=== PATIENT | male | born 1935 | race Caucasian/White ===

== ENCOUNTER 2021-02-21 18:38 | Outpatient (CLI) | payer MEDICARE, OTHER | END 2021-02-21 18:39 | disposition critical access hospital (66) | LOC: EMS 18:38 | DX: R41.0 Disorientation, unspecified (principal) | CPT/HCPCS: A0425; A0429 ==

== ENCOUNTER 2021-02-21 18:58 | Emergency (ER) | payer MEDICARE, OTHER ==
--- NOTE | 2021-02-21 19:25 | ED Physician Documentation ---
PD HPI ALTERED MENTAL STATUS - Stated complaint Stated Complaint: CONFUSED - History obtained from History obtained from: Patient, EMS - Additional information Additional information: 85-year-old gentleman presents by ambulance having gone over the neighbors house looking for his . He states that he sees her every now and then and now admits that it was not true and he was confused. That said he does seem mildly confused and notes that his children have recently taken his cars away from him. He does still live alone. Review of Systems Ten Systems: 10 systems reviewed and negative Constitutional: reports: Reviewed and negative Eyes: reports: Reviewed and negative Ears: reports: Reviewed and negative Nose: reports: Reviewed and negative PD PAST MEDICAL HISTORY - Past Medical History Cardiovascular: Hypertension Respiratory: COPD Musculoskeletal: Osteoarthritis - Past Surgical History Past Surgical History: Yes General: Cholecystectomy Cardiovascular: Valve replacement - Present Medications Home Medications: Ambulatory Orders Medication Instructions Recorded Confirmed Ascorbic Acid [Vitamin C] 1,000 mg PO DAILY 05/20/13 02/11/15 Aspirin [Aspir 81] 81 mg PO DAILY 05/20/13 02/11/15 Esomeprazole Magnesium [Nexium] 20 mg PO DAILY 05/20/13 02/11/15 Fluticasone [Flonase] 1 sprays [place] DAILY 05/20/13 02/11/15 Multivitamin [Multivitamins] 1 each PO DAILY 05/20/13 02/11/15 Simvastatin [Zocor] 20 mg PO QPM 05/20/13 02/11/15 Terazosin [Hytrin] 2 mg PO QPM 05/20/13 02/11/15 Tiotropium [Spiriva] 1 puffs INH DAILY 05/20/13 02/11/15 amLODIPine [Norvasc] 10 mg PO DAILY 05/20/13 02/11/15 lisinopriL [Lisinopril] 5 mg PO DAILY 05/20/13 02/11/15 - Allergies Allergies/Adverse Reactions: Allergies Allergy/AdvReac Type Severity Reaction Status Date / Time No Known Drug Allergies Allergy Verified 02/21/21 19:27 - Social History Does the pt smoke?: No Smoking Status: Never smoker Does the pt drink ETOH?: No Does the pt have substance abuse?: No - Immunizations Immunizations are current?: Yes - POLST Patient has POLST: Yes POLST Status: Full Code PD ED PE NORMAL - Vitals Vital signs reviewed: Yes - General General: Other (Alert and oriented to person and place but not time) - HEENT HEENT: PERRL, EOMI - Neck Neck: Supple, no meningeal sign, No bony TTP - Abdomen Abdomen: Soft, Non tender - Back Back: No CVA TTP, No spinal TTP - Derm Derm: Normal color, Warm and dry - Extremities Extremities: No edema, No calf tenderness / cord - Psych Psych: Normal mood, Normal affect Results - Vitals Vitals: Vital Signs - 24 hr 02/21/21 19:23 Temperature 36.8 C Heart Rate 58 L Respiratory 18 Rate Blood Pressure 231/72 H O2 Saturation 97 Oxygen O2 Source Room air - Labs Labs: Laboratory Tests 02/21/21 02/21/21 02/21/21 19:20 19:20 19:20 WBC 6.9 RBC 3.93 L Hgb 12.6 L Hct 38.7 L MCV 98.5 H MCH 32.1 H MCHC 32.6 RDW 13.2 Plt Count 175 MPV 9.6 Neut # (Auto) 3.9 Lymph # (Auto) 2.1 [place] # (Auto) 0.7 Eos # (Auto) 0.2 Baso # (Auto) 0.0 Absolute Nucleated RBC 0.00 Nucleated RBC % 0.0 PT 13.4 H INR 1.2 Sodium 141 Potassium 4.2 Chloride 104 Carbon Dioxide 28 Anion Gap 9.0 BUN 26 H Creatinine 1.2 Estimated GFR (MDRD) 58 L Glucose 101 H Calcium 8.6 Magnesium 2.0 Total Bilirubin 0.5 AST 18 ALT 11 Alkaline Phosphatase 58 Total Protein 6.5 L Albumin 3.5 Globulin 3.0 Albumin/Globulin Ratio 1.2 Ethyl Alcohol < 5.0 PD MEDICAL DECISION MAKING - ED course ED course: 85-year-old gentleman presents with no specific complaint but having gone over the neighbors house looking for his . He is mildly confused and I discussed this with his son, Otoniel, by phone. He is available [phone]. They understand that dad is demented and is likely approaching the point where he is no longer able to live alone. He will pick him up after work-up. Departure - Departure Disposition: 01 Home, Self Care Clinical Impression: Dementia Qualifiers: Dementia type: unspecified type Dementia behavioral disturbance: without behavioral disturbance Qualified Code(s): F03.90 - Unspecified dementia without behavioral disturbance Condition: Good Record reviewed to determine appropriate education?: Yes Instructions: ED Dementia Caregiver Support Comments: He should not drive and he is approaching the point where he is no longer safe to live alone. Please consider alternative arrangements. Follow-up with your primary care physician.
[2021-02-21 19:26] VITALS: BP 231/72
[2021-02-21 19:29] LABS: BASOPHILS % (AUTO) 0.6 %; EOSINOPHILS # (AUTO) 0.2 10^3/uL (0.0-0.7); EOSINOPHILS % (AUTO) 2.5 %; HCT - HEMATOCRIT 38.7 % (42.0-52.0); HGB - HEMOGLOBIN 12.6 g/dL (14.0-18.0); LYMPHOCYTES # (AUTO) 2.1 10^3/uL (1.5-3.5); LYMPHOCYTES % (AUTO) 30.1 %; MEAN CORPUSCULAR HEMOGLOBIN 32.1 pg (27.0-31.0); MEAN CORPUSCULAR HGB CONC 32.6 g/dL (32.0-36.0); MEAN CORPUSCULAR VOLUME 98.5 fL (80.0-94.0); MEAN PLATELET VOLUME 9.6 fL (7.4-11.4); MONOCYTES # (AUTO) 0.7 10^3/uL (0.0-1.0); MONOCYTES % (AUTO) 10.4 %; NEUTROPHILS # (AUTO) 3.9 10^3/uL (1.5-6.6); NEUTROPHILS % (AUTO) 56.1 %; PLT - PLATELET COUNT 175 10^3/uL (130-450); RED BLOOD COUNT 3.93 10^6/uL (4.70-6.10); RED CELL DISTRIBUTION WIDTH 13.2 % (12.0-15.0); WHITE BLOOD COUNT 6.9 x10^3/uL (4.8-10.8)
[2021-02-21 19:34] LABS: INR 1.2 (0.8-1.2); PT - PROTHROMBIN TIME 13.4 secs (9.9-12.6)
[2021-02-21 19:41] LABS: ALBUMIN 3.5 g/dL (3.2-5.5); ALBUMIN/GLOBULIN RATIO 1.2 (1.0-2.2); ALKALINE PHOSPHATASE 58 IU/L (42-121); ALT ALANINE AMINOTRANSFERASE 11 IU/L (10-60); AST ASPARTATE AMINOTRANSFERASE 18 IU/L (10-42); BILIRUBIN,TOTAL 0.5 mg/dL (0.2-1.0); BUN - BLOOD UREA NITROGEN 26 mg/dL (6-20); CALCIUM 8.6 mg/dL (8.5-10.3); CARBON DIOXIDE - CO2 28 mmol/L (21-32); CHLORIDE 104 mmol/L (101-111); CREATININE 1.2 mg/dL (0.6-1.2); ETOH - ETHANOL < 5.0 mg/dL; GFR - MDRD 58 (>89); GLUCOSE 101 mg/dL (70-100); POTASSIUM 4.2 mmol/L (3.5-5.0); SODIUM 141 mmol/L (135-145); TOTAL PROTEIN 6.5 g/dL (6.7-8.2)
== END 2021-02-21 20:42 | disposition home or self-care (01) ==
LOC: EDUNIT# → ED 18:58
DX: F03.90 Unspecified dementia, unspecified severity, without behavioral disturbance, psychotic disturbance, mood disturbance, and anxiety (principal); I10 Essential (primary) hypertension; Z95.2 Presence of prosthetic heart valve; Z79.82 Long term (current) use of aspirin
CPT/HCPCS: 36415; 80053; 83735; 85025; 85610; 99283; G0480; 80320